=== PATIENT | male | born 1990 | race Caucasian/White ===

== ENCOUNTER 2023-08-04 22:03 | Emergency (ER) | payer OTHER, SELFPAY ==
[2023-08-04 22:07] VITALS: BP 157/95; PULSE 77; RESP 18; TEMP 36.6; O2SAT 99; BMI 27.3
--- NOTE | 2023-08-04 22:18 | ED.ABDPAIN1 ---
HPI - Abdominal Pain General Chief Complaint: Abdominal Pain Stated Complaint: Flank Pain, Hx Kidney Stones Time Seen by Provider: 08/04/23 22:10 Source: patient Mode of arrival: walk-in History of Present Illness HPI narrative: presents complaining of kidney stone. Pain on and off left flank since this past associated with nausea but no diarrhea or fever. No dysuria or hematuria Related Data Allergies Allergy/AdvReac Type Severity Reaction Status Date / Time No Known Drug Allergies Allergy Verified 08/04/23 22:11 Review of Systems ROS Status of ROS 10 or more systems reviewed and unremarkable except as noted in history and below Exam Constitutional Vital Signs, click to edit/add: Last Vital Signs Temp 97.8 F 08/04/23 22:07 Pulse 77 08/04/23 22:07 Resp 18 08/04/23 22:07 BP 157/95 H 08/04/23 22:07 Pulse Ox 99 08/04/23 22:07 O2 Del Method Room Air 08/04/23 22:07 Common normals: no apparent distress, average body habitus, oriented x3, no limitations, healthy appearing, alert and well nourished Eye Common normals: EOMs intact bilaterally and conjunctivae normal Respiratory Common normals: normal respiratory effort, no retractions, no use of accessory muscles and clear to auscultation bilaterally Cardio Common normals: regular rate, regular rhythm, S1 normal heart sound and S2 normal heart sound GI Common normals: Normal to inspection, nondistended, normoactive bowel sounds present, soft to palpation and non-tender Common normals: no CVA tenderness, external exam normal, testes normal, scrotum normal and no scrotal swelling Extremity Common normals: normal to inspection and full ROM Neuro Common normals: oriented x3, CN's II-XII intact bilaterally, moves all extremities, no focal motor deficits and no sensory deficits noted Psych Appearance: grossly normal Course Vital Signs Vital signs: Vital Signs Temperature 97.8 F 08/04/23 22:07 Pulse Rate 77 08/04/23 22:07 Respiratory Rate 18 08/04/23 22:07 Blood Pressure 157/95 H 08/04/23 22:07 Pulse Oximetry 99 08/04/23 22:07 Oxygen Delivery Method Room Air 08/04/23 22:07 Temperature 97.8 F 08/04/23 22:07 Pulse Rate 77 08/04/23 22:07 Respiratory Rate 18 08/04/23 22:07 Blood Pressure 157/95 H 08/04/23 22:07 Pulse Oximetry 99 08/04/23 22:07 Oxygen Delivery Method Room Air 08/04/23 22:07 MDM - Abdominal Pain MDM Narrative Medical decision making narrative: presents with left testicle pain. similar pain with last kidney stones. Did past stone about one year ago. Testicl exam normal. CT with finding of 3mm stone and mild hydronephrosis at left UVJ. UA without evidence of infection. Patient feeling better after treatment. Pain is now tolerable. Given dose of Flomax and discharged home to follow up with Urology Lab Data Labs: Lab Results 08/04/23 08/04/23 Range/Units 22:11 22:15 WBC 11.3 H (4.0-11.0) 10^3/uL RBC 4.58 L (4.70-6.10) 10^6/uL Hgb 13.6 L (14.0-18.0) g/dL Hct 39.2 L (42.0-54.0) % MCV 85.6 (80.0-94.0) fL MCH 29.7 (25.9-34.0) pg MCHC 34.7 (29.9-35.2) g/dL RDW 11.4 (11.0-15.0) % Plt Count 235 (150-450) 10^3/uL MPV 10.1 (9.5-13.5) fL Neut % (Auto) 64.7 (43.0-75.0) % Lymph % (Auto) 27.4 (20.5-60.0) % Coleman % (Auto) 6.5 (1.7-12.0) % Eos % (Auto) 0.6 L (0.9-7.0) % Baso % (Auto) 0.4 (0.2-2.0) % Neut # (Auto) 7.3 H (1.4-6.5) 10^3/uL Lymph # (Auto) 3.1 (1.2-3.8) 10^3/uL Coleman # (Auto) 0.7 (0.3-0.8) 10^3/uL Eos # (Auto) 0.1 (0.0-0.7) 10^3/uL Baso # (Auto) 0.0 (0.0-0.1) 10^3/uL Abs Immat Gran (auto) 0.04 H (0.00-0.03) 10^3/uL Imm/Tot Granulo (auto) 0.4 (0.0-0.5) % Sodium 135 L (136-145) mmol/L Potassium 3.9 (3.5-5.1) mmol/L Chloride 99 (98-107) mmol/L Carbon Dioxide 27.0 (21.0-32.0) mmol/L Anion Gap 12.9 BUN 18.0 (7.0-18.0) mg/dL Creatinine 1.15 (0.70-1.30) mg/dL Est GFR ( Amer) >60 (>=60) Est GFR (Non-Af Amer) >60 (>=60) BUN/Creatinine Ratio 15.7 Glucose 108 H (74-106) mg/dL Calcium 8.8 (8.5-10.1) mg/dL Urine Color Lt. yellow (YELLOW) Urine Clarity Sl cloudy (CLEAR) Urine pH 6.5 (5.0-9.0) Ur Specific Faxon 1.010 (1.005-1.025) Urine Protein Negative (NEG/TRACE) mg/dL Urine Glucose (UA) Negative (NEGATIVE) mg/dL Urine Ketones Negative (NEGATIVE) mg/dL Urine Occult Blood Small A (NEGATIVE) Urine Nitrite Negative (NEGATIVE) Urine Bilirubin Negative (NEGATIVE) Urine Urobilinogen 0.2 (0.2-1.0) EU/dL Ur Leukocyte Esterase Negative (NEGATIVE) Urine RBC 5-10 A (0-2) #/HPF Urine WBC None seen (NONE SEEN) #/HPF Ur Squamous Epith Cells Rare (NONE/RARE) #/LPF Urine Crystals None seen (None Seen) #/HPF Urine Bacteria Moderate A (NONE SEEN) #/HPF Urine Casts None seen (NONE SEEN) #/LPF Urine Mucus None seen (NONE SEEN) Ur Culture Indicated? No Imaging Data CT scan - abdomen: Radiologist's impression: [address] [place] [id number] Patient Name: JOSE BENTON MRN: [facility]:[id number] date: 1990 Sex: M Assigned Patient Location: ER Current Patient Location: ER Accession/Order Number: [id number] Exam Date: 08/04/2023 22:30 Report Date: 08/04/2023 22:57 At the request of: MERLY DELUCA Procedure: CT abdomen pelvis wo con EXAM: CT abdomen pelvis wo con HISTORY: left renal colic . Left flank pain for 3 days, worsening over the past 2 hours. Urinary frequency. Nausea. History kidney stones. COMPARISON: CT abdomen pelvis, 11/13/2022. TECHNIQUE: Nonenhanced CT imaging the abdomen and pelvis was performed with sagittal and coronal reconstructions. Dose reduction techniques were achieved by using automated exposure control and/or adjustment of mA and/or kV according to patient size and/or use of iterative reconstruction technique. FINDINGS: CT ABDOMEN: The lung bases are clear. Cardiac size is normal. There is no pericardial effusion. Heterogeneous hepatic steatosis is noted with scattered foci of focal fatty sparing. The gallbladder, pancreas, spleen, adrenal glands, aorta, IVC, stomach, small bowel and left kidney are grossly unremarkable, allowing for the lack of contrast. There is mild left hydroureteronephrosis extending to the UVJ level where there is a 3 mm stone on image 125. No additional upper or lower urinary tract calculi are seen on either side. CT PELVIS: A normal appendix is seen on image 94. The pelvic small bowel loops, colon, seminal vesicles and prostate gland are unremarkable. Nonspecific urinary bladder wall thickening is noted. No inflammatory fat stranding, free fluid, loculated fluid or free air is seen in the abdomen or pelvis. No acute osseous abnormality or suspicious bony lesion is seen. CT/CT abdomen pelvis wo con IMPRESSION: 1. Mild left hydroureteronephrosis due to a 3 mm stone at the left UVJ. No additional upper or lower urinary tract calculi are seen on either side. 2. Nonspecific urinary bladder wall thickening could reflect incomplete bladder distention or mild cystitis. No other acute findings are seen in the abdomen or pelvis. 3. Heterogeneous hepatic steatosis with multifocal fatty sparing. 4. Normal appendix. Discharge Plan Discharge Chief Complaint: Abdominal Pain Clinical Impression: Renal colic on left side Patient Disposition: Home, Self-Care Instructions: Renal Colic (ED) Additional Instructions: follow up with Dr Morales Urology Stand Alone Forms: Portal Instructions Referrals: OLU GRACE [Primary Care Provider] - 1 week
[2023-08-04 22:31] LABS: Basophils Percent Auto 0.4 % (0.2-2.0); Eosinophils Absolute Auto 0.1 10^3/uL (0.0-0.7); Eosinophils Percent Auto 0.6 % (0.9-7.0); Hematocrit 39.2 % (42.0-54.0); Hemoglobin 13.6 g/dL (14.0-18.0); Immature Granulocytes Abs Auto 0.04 10^3/uL (0.00-0.03); Immature Granulocytes Pct Auto 0.4 % (0.0-0.5); Lymphocytes Absolute Auto 3.1 10^3/uL (1.2-3.8); Lymphocytes Percent Auto 27.4 % (20.5-60.0); Mean Corpuscular HGB Conc 34.7 g/dL (29.9-35.2); Mean Corpuscular Hemoglobin 29.7 pg (25.9-34.0); Mean Corpuscular Volume 85.6 fL (80.0-94.0); Mean Platelet Volume 10.1 fL (9.5-13.5); Monocytes Absolute Auto 0.7 10^3/uL (0.3-0.8); Monocytes Percent Auto 6.5 % (1.7-12.0); Neutrophils Absolute Auto 7.3 10^3/uL (1.4-6.5); Neutrophils Percent Auto 64.7 % (43.0-75.0); Platelet Count 235 10^3/uL (150-450); Red Blood Count 4.58 10^6/uL (4.70-6.10); Red Cell Distribution Width 11.4 % (11.0-15.0); White Blood Count 11.3 10^3/uL (4.0-11.0)
[2023-08-04 22:32] LABS: Bilirubin Urine NEGATIVE (NEGATIVE); Blood Urine SMALL (NEGATIVE); Clarity Urine SL CLOUDY (CLEAR); Color Urine LT. YELLOW (YELLOW); Glucose Urine UA NEGATIVE (NEGATIVE); Ketones Urine NEGATIVE (NEGATIVE); Leukocyte Esterase Urine NEGATIVE (NEGATIVE); Nitrite Urine NEGATIVE (NEGATIVE); Protein Urine NEGATIVE (NEG/TRACE); Urobilinogen Urine 0.2 EU/dL (0.2-1.0); pH Urine 6.5 (5.0-9.0)
[2023-08-04] MEDS: KETOROLAC TROMETHAMINE 30 MG/ML VIAL IVP (22:37)
[2023-08-04] MEDS: 0.9 % SODIUM CHLORIDE 1,000 ML 999 ML IV (22:37)
[2023-08-04 22:40] LABS: Anion Gap 12.9; BUN Creatinine Ratio 15.7; Calcium 8.8 mg/dL (8.5-10.1); Chloride 99 mmol/L (98-107); Estimated GFR (African America >60 (>=60); Estimated GFR (Non-African Ame >60 (>=60); Glucose 108 mg/dL (74-106); Potassium 3.9 mmol/L (3.5-5.1); Sodium 135 mmol/L (136-145)
[2023-08-04 22:43] LABS: Urine Microscopic Indicated YES
[2023-08-04 22:44] LABS: Bacteria Urine MODERATE #/HPF (NONE SEEN); Crystals Seen? None Seen #/HPF (None Seen); Mucus Urine NONE SEEN (NONE SEEN); Squamous Epithelial Cell Urine RARE #/LPF (NONE/RARE); WBC Urine NONE SEEN #/HPF (NONE SEEN)
[2023-08-04 22:45] LABS: Cast Seen? NONE SEEN #/LPF (NONE SEEN); Urine Culture Indicated NO
[2023-08-04] MEDS: ONDANSETRON PF 4 MG/2 ML VIAL IV (22:48)
[2023-08-05] MEDS: ONDANSETRON 4 MG RAPDIS TABLET SL
[2023-08-05] MEDS: TAMSULOSIN HCL 0.4 MG CAPSULE PO
[2023-08-05] MEDS: HYDROCODONE/ACET 5-325 MG TABLET 2 TAB PO
== END 2023-08-05 00:11 | disposition home or self-care (01) ==
PROVIDERS: Emergency Provider Internal Medicine; PCP Family Medicine
DX: N13.2 Hydronephrosis with renal and ureteral calculous obstruction (principal); Z87.442 Personal history of urinary calculi
CPT/HCPCS: 36415; 74176; 80048; 81001; 85025; 96374; 96375; 99285

== ENCOUNTER 2025-02-12 15:05 | Outpatient (OUT) | payer OTHER, SELFPAY ==
[2025-02-12 15:17] LABS: Basophils Percent Auto 0.5 % (0.2-2.0); Eosinophils Absolute Auto 0.1 10^3/uL (0.0-0.7); Eosinophils Percent Auto 1.5 % (0.9-7.0); Hematocrit 44.4 % (42.0-54.0); Hemoglobin 15.5 g/dL (14.0-18.0); Immature Granulocytes Abs Auto 0.02 10^3/uL (0.00-0.03); Immature Granulocytes Pct Auto 0.3 % (0.0-0.5); Mean Corpuscular HGB Conc 34.9 g/dL (29.9-35.2); Mean Corpuscular Hemoglobin 30.5 pg (25.9-34.0); Mean Corpuscular Volume 87.4 fL (80.0-94.0); Mean Platelet Volume 9.6 fL (9.5-13.5); Monocytes Absolute Auto 0.6 10^3/uL (0.3-0.8); Monocytes Percent Auto 7.3 % (1.7-12.0); Neutrophils Absolute Auto 3.2 10^3/uL (1.4-6.5); Neutrophils Percent Auto 40.4 % (43.0-75.0); Platelet Count 274 10^3/uL (150-450); Red Blood Count 5.08 10^6/uL (4.70-6.10); Red Cell Distribution Width 11.3 % (11.0-15.0); White Blood Count 7.9 10^3/uL (4.0-11.0)
[2025-02-12 17:20] LABS: Alanine Aminotransferase 51 U/L (16-63); Albumin Globulin Ratio 1.2; Albumin Level 4.1 g/dL (3.4-5.0); Alkaline Phosphatase 97 U/L (46-116); Anion Gap 12.9; Aspartate Amino Transferase 19 U/L (15-37); BUN Creatinine Ratio 12.2; Bilirubin Total 0.3 mg/dL (0.2-1.0); Calcium 9.1 mg/dL (8.5-10.1); Chloride 100 mmol/L (98-107); Estimated GFR (African America >60 (>=60 mL/min/1.73m^2); Estimated GFR (Non-African Ame >60 (>=60 mL/min/1.73m^2); Globulin 3.5 g/dL; Glucose 90 mg/dL (74-106); Potassium 3.9 mmol/L (3.5-5.1); Sodium 140 mmol/L (136-145); Total Protein 7.6 g/dL (6.4-8.2)
[2025-02-17 13:10] LABS: Testosterone 233 ng/dL (264-916)
== END 2025-02-12 15:06 | disposition home or self-care (01) ==
LOC: LAB 15:08
PROVIDERS: PCP Family Medicine; Visit Provider Physician Assistant
DX: E29.1 Testicular hypofunction (principal); R68.82 Decreased libido; R79.89 Other specified abnormal findings of blood chemistry; R03.0 Elevated blood-pressure reading, without diagnosis of hypertension
CPT/HCPCS: 36415; 80053; 84402; 84403; 85025